=== PATIENT | male | born 1950 | race African-American/Black ===

== ENCOUNTER 2016-05-05 21:30 | Emergency (ER) | payer OTHER ==
[~2016-05-05] VITALS: Ht 185.4 cm; Wt 95.3 kg
[2016-05-05 22:03] LABS: Basophils # (auto) 0 uL; Basophils % (auto) 0.3 % (0.0-2.0); DEFINITIVE VIEW TRANSMISSION; Eosinophils # (auto) 0 uL; Eosinophils % (auto) 0.1 % (0.0-7.0); Lymphocytes # (auto) 0.7 uL; Mean Platelet Volume 8.8 fL (7.4-10.4); Monocytes # (auto) 0.2 uL; Neutrophils # (auto) 4.2 uL
[2016-05-05] MEDS ORDERED: NITROGLYCERIN 2% OINT 1GM PKG TD ONE (22:06)
[2016-05-05 22:08] LABS: Urine RBC None Seen /hpf (0 - 3)
[2016-05-05 22:09] LABS: Hematocrit 52.8 % (41.0-53.0); Mean Corpuscular Hgb Conc. 32.1 g/dL (32.0-36.0); Mean Corpuscular Volume 87.2 fL (80.0-100.0); Monocytes % (auto) 3.3 % (0.0-12.0); Neutrophils % (auto) 82.3 % (37.0-80.0); Platelet Count (auto) 247 10^3/uL (140-450); Red Cell Distribution Width 15.8 % (11.6-16.0); White Blood Cell 5.1 10^3/uL (4.4-10.8)
[2016-05-05] MEDS ORDERED: ETOMIDATE (2MG/ML) 20ML VIAL IV ONE ×2 (22:18→22:30)
[2016-05-05 22:21] LABS: Albumin 3.9 g/dL (3.4-5.0); Alkaline Phosphatase 137 U/L (45-117); Anion Gap 11 (5-15); Aspartate Aminotransferase 11 U/L (15-37); BUN/Creatinine Ratio 10.7; Bilirubin, Total 1.5 mg/dL (0.2-1.0); Blood Urea Nitrogen 12 mg/dL (7-18); Calcium 9.5 mg/dL (8.5-10.1); Carbon Dioxide 26 mmol/L (21-32); Chloride 104 mmol/L (98-107); GFR African American 84 mL/min; GFR Non-African American 70 mL/min; Glucose 172 mg/dL (74-106); INR 1.15 (0.9-1.15); Partial Thromboplastin Time 29.2 sec (22.64-33.71); Prothrombin Time 11.8 sec (9.37-12.3); Sodium 141 mmol/L (136-145); Total Protein 7.7 g/dL (6.4-8.2)
[2016-05-05] MEDS ORDERED: SUCCINYLCHOLINE CHLORIDE 20 MG/ML 10ML VIAL IV ONE ×4 (22:30→23:00)
[2016-05-05 22:45] LABS: Urine Bilirubin Negative (Negative); Urine Blood Negative /uL (Negative); Urine Color Yellow (Yellow); Urine Glucose Normal (Normal); Urine Nitrite Negative (Negative); Urine Urobilinogen Normal (Negative); Urine pH 7.5 (5.0-8.0)
[2016-05-05 22:47] LABS: Urine Ketone 1+ (Negative)
[2016-05-05] MEDS ORDERED: MIDAZOLAM HCL 5 MG/ML-1ML VIAL ONE (22:57)
[2016-05-05] MEDS ORDERED: MIDAZOLAM DRIP 100 mg/100mL NS 100 ML IV ONE (22:58)
[2016-05-05] MEDS ORDERED: FUROSEMIDE 20 MG/2 ML VIAL IV ONE (23:00)
[2016-05-05] MEDS ORDERED: MIDAZOLAM DRIP 100 mg/100mL NS 100 ML IV SCH (23:00)
[2016-05-05] MEDS ORDERED: DEXAMETHASONE SOD PHOS 4 MG/1ML SDV INJ IV ONE (23:00)
[2016-05-05] MEDS ORDERED: MANNITOL 20% SOLN 100 gm/500ml 300 ML IV ONE (23:00)
[2016-05-05] MEDS ORDERED: MIDAZOLAM HCL 5 MG/ML-1ML VIAL IV ONE (23:15)
[2016-05-05] MEDS ORDERED: NIMODIPINE 30 MG CAP PO ONE (23:30)
[2016-05-05] MEDS ORDERED: PROPOFOL 100 ML IV SCH (23:30)
[2016-05-06] MEDS ORDERED: MANNITOL FTV 25% 12.5 GM/50 ML 50 ML IV ONE (00:01)
[2016-05-06 00:07] VITALS: BP 162/107
[2016-05-06] MEDS ORDERED: MANNITOL FTV 25% 12.5 GM/50 ML 100 ML IV ONE (00:16)
[2016-05-24] MEDS ORDERED: LABE200T18 PO (12:58)
[2016-05-24] MEDS ORDERED: AMLO10TA2 PO (12:58)
[2016-05-24] MEDS ORDERED: ATOR20TA50 PO (12:58)
[2016-05-24] MEDS ORDERED: CEPH500C PO (12:58)
== END 2016-05-06 00:29 | disposition short-term general hospital (02) ==
LOC: ER 21:32
DX: I60.9 Nontraumatic subarachnoid hemorrhage, unspecified (principal); G91.9 Hydrocephalus, unspecified; R51 Headache
CPT/HCPCS: 31500; 36415; 70450; 71010; 80053; 80320; 81001; 82962; 83605; 83735; 84484; 85025; 85379; 85610; 85730; 87040; 93005; 94002; 94761; 96374; 96375; 99285; J0330; J1100; J1940; J2150; J2250; J2704; J7050